=== PATIENT | male | born 1940 | race Asian ===

== ENCOUNTER 2016-10-01 07:40 | Emergency (ER) | payer MEDICARE, MEDICAID ==
[2016-10-01 08:18] LABS: BASOPHIL % 0.9 % (0-2); PLATELET COUNT 265 x10^3mcL (130-400)
[2016-10-01 08:31] LABS: CALCIUM 8.2 mg/dL (8.5-10.1); CARBON DIOXIDE 26.6 mmol/L (21-32); CHLORIDE SERUM 110 mmol/L (98-107); CREATININE SERUM 0.8 mg/dL (0.7-1.3); GLUCOSE SERUM 137 mg/dL (74-106); POTASSIUM SERUM 3.6 mmol/L (3.5-5.1); SODIUM SERUM 142 mmol/L (136-145)
[2016-10-01 08:36] LABS: ALKALINE PHOSPHATASE 78 U/L (46-116); ALT/SGPT 25 U/L (16-63); AST/SGOT 20 U/L (15-37); BILIRUBIN TOTAL 0.4 mg/dL (0.20-1.00); TOTAL PROTEIN, SERUM 6.9 g/dL (6.4-8.2)
[2016-10-01 08:38] LABS: ALBUMIN 2.9 g/dL (3.4-5.0)
[2016-10-01] MEDS ORDERED: METFORMIN ER500 M1 PO (08:46)
[2016-10-01] MEDS ORDERED: NOR5 PO (08:46)
[2016-10-01 09:45] VITALS: BP 177/81
== END 2016-10-01 09:46 | disposition left against medical advice (07) ==
LOC: ED 07:40
PROVIDERS: Emergency Medicine
DX: R07.89 Other chest pain (principal); I10 Essential (primary) hypertension; E11.9 Type 2 diabetes mellitus without complications; Z79.84 Long term (current) use of oral hypoglycemic drugs
CPT/HCPCS: 36415; 83880; Q0092